=== PATIENT | female | born 1980 | race Caucasian/White ===

== ENCOUNTER 2022-12-23 10:22 | Emergency (ER) | payer MEDICAID ==
[~2022-12-23] VITALS: Ht 165.1 cm; Wt 90.0 kg
[2022-12-23 10:28] VITALS: BP 127/87
[2022-12-23] MEDS ORDERED: ARIP20TA2 MT (14:01)
== END 2022-12-23 14:53 | disposition home or self-care (01) ==
LOC: ER 10:43
DX: Z76.0 Encounter for issue of repeat prescription (principal); F31.9 Bipolar disorder, unspecified
CPT/HCPCS: 99281